=== PATIENT | female | born 1980 | race Native Hawaiian/Other Pacific Islander ===

== ENCOUNTER 2017-05-18 19:30 | Emergency (ER) | payer OTHER ==
[~2017-05-18] VITALS: Ht 167.6 cm; Wt 81.8 kg
[~2017-05-18 19:30] MED LIST: ACET-784 PO; ONDA4 PO; PREN1TAB52 PO
[2017-05-18 20:19] LABS: BASOPHILS % (AUTO) 0.3 % (0.0-2.0); EOSINOPHILS % (AUTO) 0.1 % (1.0-6.0); HEMATOCRIT 42.1 % (36-46); HEMOGLOBIN 13.7 g/dL (12.0-16.0); LYMPHOCYTES # (AUTO) 1.8 K/uL (1.0-4.8); LYMPHOCYTES % (AUTO) 12.5 % (22.0-44.0); MEAN CORPUSCULAR HEMOGLOBIN 22.7 pg (26.0-34.0); MEAN CORPUSCULAR HGB CONC 32.6 G/dL (31.0-37.0); MEAN CORPUSCULAR VOLUME 70 fL (80-100); MONOCYTES # (AUTO) 0.4 K/uL (0.1-1.0); MONOCYTES % (AUTO) 2.7 % (2.0-9.0); NEUTROPHILS # (AUTO) 12.3 K/uL (1.8-7.7); NEUTROPHILS % (AUTO) 84.4 % (40.0-70.0); PLATELET COUNT (AUTO) 304 K/uL (150-450); RED BLOOD CELL COUNT(AUTO) 6.04 MIL/uL (4.00-5.20); RED CELL DISTRIBUTION WIDTH 14.6 % (11.5-14.5)
[2017-05-18 20:36] LABS: ANION GAP 13 mmol/L (8-16); CALCIUM, TOTAL 9.2 mg/dL (8.8-10.5); CARBON DIOXIDE 22 mmol/L (22-29); CHLORIDE 103 mmol/L (98-107); CREATININE 0.91 mg/dL (0.60-1.30); GLOMERULAR FILTR. RATE CALC > 60 mL/min (>60); GLUCOSE,RANDOM 109 mg/dL (70-110); POTASSIUM 3.5 mmol/L (3.5-5.1); SODIUM SERUM 138 mmol/L (136-145); UREA NITROGEN, BLOOD 18 mg/dL (7-18)
[2017-05-18 21:02] LABS: APPEARANCE,URINE CLOUDY (CLEAR); BILIRUBIN,URINE PRELIM. POSITIVE (NEGATIVE); GLUCOSE, URINE (UA) NEGATIVE (NEGATIVE); KETONES,URINE 15 mg/dL (NEGATIVE); LEUKOCYTE ESTERASE ,URINE NEGATIVE (NEGATIVE); NITRATE,URINE NEGATIVE (NEGATIVE); OCCULT BLOOD,URINE NEGATIVE (NEGATIVE); PROTEIN,URINE SEE CONFIRM (NEGATIVE); UROBILINOGEN,URINE 0.2 mg/dL (<=1.0)
[2017-05-18 21:05] LABS: ALANINE AMINOTRANSFERASE 57 U/L (12-78); ALBUMIN 3.5 g/dL (3.4-5.0); ALKALINE PHOSPHATASE 58 U/L (46-116); ASPARTATE AMINOTRANSFERASE 30 U/L (15-37); BILIRUBIN,TOTAL 0.5 mg/dL (0.1-1.0); HCG,QUANTITATIVE 175861 mIU/mL (0-6); LIPASE 457 U/L (73-393); TOTAL PROTEIN, SERUM 9.5 g/dL (6.4-8.2)
[2017-05-18 21:06] LABS: MUCUS,URINE Moderate LPF (None Seen); SQUAMOUS EPITHELIAL CELL,UR Moderate /LPF (None Seen); SULFOSALICYLIC ACID,URINE 3+ (Negative)
[2017-05-18 21:07] LABS: BACTERIA,URINE Moderate /HPF (None Seen)
[2017-05-18 21:08] LABS: RBC,URINE 0-2 /HPF (0-2)
[2017-05-18] MEDS ORDERED: SODIUM CHLORIDE 0.9% 1,000 ML IV ONE ×2 (21:15)
[2017-05-18] MEDS ORDERED: HYDROmorphone 2 MG/ML SYRINGE IVP ONE (21:15)
[2017-05-18] MEDS ORDERED: ONDANSETRON HCL 4 MG/2 ML VIAL IVP ONE (21:15)
[2017-05-19 01:42] VITALS: BP 108/54
== END 2017-05-19 01:46 | disposition home or self-care (01) ==
LOC: EMS 19:33
DX: O26.891 Other specified pregnancy related conditions, first trimester (principal); K29.70 Gastritis, unspecified, without bleeding; K85.90 Acute pancreatitis without necrosis or infection, unspecified; Z3A.10 10 weeks gestation of pregnancy
CPT/HCPCS: 36415; 76700; 76801; 76817; 80053; 81001; 83690; 84702; 85025; 86901; 87086; 96361; 96374; 96375; 99285; J1170; J2405; J7030

== ENCOUNTER 2017-06-10 04:37 | Emergency (ER) | payer OTHER ==
[~2017-06-10] VITALS: Ht 167.6 cm; Wt 77.3 kg
[2017-06-10 05:01] LABS: BASOPHILS % (AUTO) 0.7 % (0.0-2.0); EOSINOPHILS % (AUTO) 1.3 % (1.0-6.0); HEMOGLOBIN 14.5 g/dL (12.0-16.0); LYMPHOCYTES # (AUTO) 2.1 K/uL (1.0-4.8); LYMPHOCYTES % (AUTO) 22.9 % (22.0-44.0); MEAN CORPUSCULAR HEMOGLOBIN 22.8 pg (26.0-34.0); MEAN CORPUSCULAR HGB CONC 32.9 G/dL (31.0-37.0); MEAN CORPUSCULAR VOLUME 69 fL (80-100); MONOCYTES # (AUTO) 0.3 K/uL (0.1-1.0); MONOCYTES % (AUTO) 3.7 % (2.0-9.0); NEUTROPHILS # (AUTO) 6.5 K/uL (1.8-7.7); NEUTROPHILS % (AUTO) 71.4 % (40.0-70.0); PLATELET COUNT (AUTO) 273 K/uL (150-450); RED BLOOD CELL COUNT(AUTO) 6.37 MIL/uL (4.00-5.20); RED CELL DISTRIBUTION WIDTH 14.8 % (11.5-14.5); WHITE BLOOD COUNT (AUTO) 9.1 K/uL (4.5-11.0)
[2017-06-10 05:15] LABS: ANION GAP 13 mmol/L (8-16); CARBON DIOXIDE 26 mmol/L (22-29); CHLORIDE 105 mmol/L (98-107); CREATININE 0.98 mg/dL (0.60-1.30); GLOMERULAR FILTR. RATE CALC > 60 mL/min (>60); POTASSIUM 3.6 mmol/L (3.5-5.1); SODIUM SERUM 144 mmol/L (136-145); UREA NITROGEN, BLOOD 13 mg/dL (7-18)
[2017-06-10 05:27] LABS: ALANINE AMINOTRANSFERASE 48 U/L (12-78); ALBUMIN 3.7 g/dL (3.4-5.0); ASPARTATE AMINOTRANSFERASE 28 U/L (15-37); BILIRUBIN,TOTAL 0.2 mg/dL (0.1-1.0); TOTAL PROTEIN, SERUM 9.4 g/dL (6.4-8.2)
[2017-06-10] MEDS ORDERED: ONDANSETRON HCL 4 MG/2 ML VIAL IVP ONE (05:30)
[2017-06-10 05:35] LABS: RBC MORPHOLOGY COMMENT ABNORMAL RBC MORPH
[2017-06-10 06:05] LABS: APPEARANCE,URINE CLOUDY (CLEAR); GLUCOSE, URINE (UA) NEGATIVE (NEGATIVE); KETONES,URINE NEGATIVE (NEGATIVE); LEUKOCYTE ESTERASE ,URINE SMALL (NEGATIVE); OCCULT BLOOD,URINE MODERATE (NEGATIVE); PH,URINE 5.5 (5.0-8.0); PROTEIN,URINE SEE CONFIRM (NEGATIVE)
[2017-06-10 06:07] LABS: ADD UA MICROSCOPIC YES
[2017-06-10 06:16] LABS: SQUAMOUS EPITHELIAL CELL,UR Few /LPF (None Seen); SULFOSALICYLIC ACID,URINE 1+ (Negative)
[2017-06-10 07:20] VITALS: BP 141/83
== END 2017-06-10 07:22 | disposition home or self-care (01) ==
LOC: EDUNIT# 04:37 → EMS 04:39
DX: O23.90 Unspecified genitourinary tract infection in pregnancy, unspecified trimester (principal); Z3A.00 Weeks of gestation of pregnancy not specified
CPT/HCPCS: 36415; 80053; 81001; 83690; 84702; 85025; 87077; 87086; 87186; 96374; 99284; J2405